=== PATIENT | female | born 1940 | race Caucasian/White ===

== ENCOUNTER → 2020-06-26 | Outpatient (CLI) | payer MEDICARE, OTHER ==
[~2020-06-26] MED LIST: ASPI-1238 PO; ATEN50TA PO; CALC-140 PO; CINN500C2 PO; CRAN450C PO; GLMP1T PO; IBUP-30 PO; LEVO100T7 PO; LOVA10TA PO; MULT-878 PO; POLY17PO6 PO; TRAM-42 PO
--- NOTE | 2020-06-26 17:20 | Diagnostic Imaging Report ---
EXAMINATION: Chest 2 views. HISTORY: Cough. Dyspnea. COMPARISON: Chest radiograph on 09/02/2015. FINDINGS: Lung volumes are normal. Hazy opacities are seen in the mid left lung. No pleural effusion or pneumothorax. The cardiac silhouette is unremarkable. No acute osseous abnormalities. IMPRESSION: 1. Hazy opacities in the mid left lung, which may represent infection. No pleural effusion. Dictated by: Dictated on workstation # [id number]
== END ==
LOC: RAD 16:47
PROVIDERS: ATTEND Internal Medicine
DX: R05 Cough (principal); R06.00 Dyspnea, unspecified; R91.8 Other nonspecific abnormal finding of lung field
CPT/HCPCS: 71046

== ENCOUNTER 2020-07-01 16:38 | Emergency (ER) | payer MEDICARE, OTHER ==
[~2020-07-01] VITALS: Ht 170.1 cm; Wt 90.7 kg
--- NOTE | 2020-07-01 17:01 | NUR ---
Attempted to call pt. Pt did not answer. Addendum: 07/01/20 at 1848 by [id number] Pt's COVID swab negative.
--- NOTE | 2020-07-01 17:37 | ED Respiratory ---
General Chief Complaint: Respiratory Problems Stated Complaint: DX W/ PNEUMONIA/SOB Nursing Triage Note: Pt ambulatory to rm 9. Pt reports being diagnosed with pneumonia last . Pt c/o SOB with exertion, weakness and fatigue today. Pt denies fever. Pt reports having negative COVID swab last week. Pt currently taking Levaquin. Source: patient Exam Limitations: no limitations History of Present Illness Date Seen by Provider: Jul 01, 2020 Time Seen by Provider: 17:36 Initial Comments To ER with about 2 weeks of cough and fatigue. She had a negative Covid swab last week, she had an x-ray done on and found out today she had a left middle lobe pneumonia. She was started on Levaquin yesterday. She's had one dose. No fevers. Timing/Duration: just prior to arrival Allergies and Home Medications Allergies Coded Allergies: cephalexin (Verified Adverse Reaction, Mild, NAUSEA, 09/03/15) Patient states the medication made her "vomit" Home Medications Aspirin 81 Mg Tablet.dr, 81-162 MG PO DAILY PRN for PAIN, (Reported) Atenolol 50 Mg Tablet, 50 MG PO DAILY Prescribed by: BRENDAN DUARTE on 09/04/15 0912 Calcium Carbonate/Vitamin D3 1 Each Tablet, 1 EACH PO TID, (Reported) Cranberry Fruit Concentrate 450 Mg Capsule, 450 MG PO DAILY, (Reported) Glimepiride 1 Mg Tab, 1 MG PO DAILY Prescribed by: BRENDAN DUARTE on 09/04/15 0912 Levothyroxine Sodium 100 Mcg Tablet, 100 MCG PO DAILY Prescribed by: JEET GALVAN on 10/22/15 152 Lovastatin 10 Mg Tablet, 10 MG PO DAILY Prescribed by: BRENDAN DUARTE on 09/05/15 0853 Multivitamins-Min/FA/Ginkgo 1 Each Tablet, 1 TAB PO DAILY, (Reported) Tramadol HCl 50 Mg Tablet, 50 MG PO BID PRN for PAIN Prescribed by: JEET GALVAN on 10/22/15 1523 Patient Home Medication List Home Medication List Reviewed: Yes Review of Systems Review of Systems Constitutional: see HPI; No chills, No fever; weakness EENTM: see HPI Respiratory: see HPI, cough (improving) Cardiovascular: no symptoms reported Genitourinary: no symptoms reported Musculoskeletal: no symptoms reported Skin: no symptoms reported Psychiatric/Neurological: No Symptoms Reported Past Pqytzjf-Yweapp-Nohmag Hx Patient Social History Alcohol Use: Denies Use Recreational Drug Use: No 2nd Hand Smoke Exposure: No Recent Foreign Travel: No Contact w/Someone Who Travel: No Recent Infectious Disease Expo: No Physical Abuse: No Sexual Abuse: No Mistreated: No Fear: No Seasonal Allergies Seasonal Allergies: No Past Medical History Surgeries: Yes (resection of basal cell carcinoma) Respiratory: Yes Pneumonia Currently Using CPAP: No Currently Using BIPAP: No 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) High Cholesterol, Hypertension Neurological: Yes Reproductive Disorders: No Sexually Transmitted Disease: No HIV/AIDS: No Gastrointestinal: No Musculoskeletal: Yes Arthritis Endocrine: Yes (THYROID NODULES) Hypothyroidsim, Diabetes, Non-Insulin dep Loss of Vision: Bilateral Hearing Impairment: Denies Cancer: Yes (basil cell carcinoma removal on forhead february 22, 2013) Skin Psychosocial: No Integumentary: No Blood Disorders: No Adverse Reaction/Blood Tranf: No Family Medical History Diabetes mellitus 19 MOTHER G8 BROTHER G8 BROTHER G8 BROTHER G8 BROTHER G8 BROTHER G8 BROTHER G8 BROTHER G8 BROTHER G8 BROTHER G8 SISTER G8 SISTER G8 SISTER G8 SISTER G8 SISTER G8 SISTER FH: lung cancer 19 FATHER Myocardial infarction 19 MOTHER ( with [place]) Respiratory disorder 19 MOTHER (pneumonia) Heart Disease, Cancer, Diabetes Physical Exam Vital Signs - First Documented 07/01/20 17:15 Temp 37.0 Pulse 85 Resp 20 B/P (MAP) 167/73 (104) Pulse Ox 98 O2 Delivery Room Air Capillary Refill : Less Than 3 Seconds Height: 5'9.00" Weight: 191lbs. 2.0oz. 86.181613ps; 31.00 BMI Method:Stated General Appearance: WD/WN, no apparent distress Eyes: Bilateral Eye Normal Inspection, Bilateral Eye PERRL, Bilateral Eye EOMI HEENT: PERRL/EOMI, normal ENT inspection Neck: non-tender, full range of motion Respiratory: normal breath sounds, no respiratory distress, no accessory muscle use Gastrointestinal: normal bowel sounds, non tender Extremities: normal range of motion, non-tender (-year-old) Neurologic/Psychiatric: alert, normal mood/affect, oriented x 3 Skin: normal color, warm/dry Progress/Results/Core Measures Suspected Sepsis Recent Fever Within 48 Hours: No Infection Criteria Present: None New/Unexplained Altered Menta: No Sepsis Screen: No Definite Risk SIRS Temperature: Pulse: 85 Respiratory Rate: 20 Laboratory Tests 07/01/20 17:15: White Blood Count 8.4 Blood Pressure 167 /73 Mean: 104 Laboratory Tests 07/01/20 17:15: Creatinine 0.88, Platelet Count 338, Total Bilirubin 0.3 Results/Orders Lab Results Laboratory Tests Test 07/01/20 17:15 07/01/20 17:50 07/01/20 18:04 07/01/20 19:19 Range/Units White Blood Count 8.4 4.3-11.0 10^3/uL Red Blood Count 4.27 3.80-5.11 10^6/uL Hemoglobin 12.9 11.5-16.0 g/dL Hematocrit 40 35-52 % Mean Corpuscular Volume 95 80-99 fL Mean Corpuscular Hemoglobin 30 25-34 pg Mean Corpuscular Hemoglobin Concent 32 32-36 g/dL Red Cell Distribution Width 12.2 10.0-14.5 % Platelet Count 338 130-400 10^3/uL Mean Platelet Volume 9.4 9.0-12.2 fL Immature Granulocyte % (Auto) 0 % Neutrophils (%) (Auto) 45 42-75 % Lymphocytes (%) (Auto) 43 12-44 % Monocytes (%) (Auto) 8 0-12 % Eosinophils (%) (Auto) 3 0-10 % Basophils (%) (Auto) 1 0-10 % Neutrophils # (Auto) 3.8 1.8-7.8 10^3/uL Lymphocytes # (Auto) 3.6 1.0-4.0 10^3/uL Monocytes # (Auto) 0.7 0.0-1.0 10^3/uL Eosinophils # (Auto) 0.3 0.0-0.3 10^3/uL Basophils # (Auto) 0.1 0.0-0.1 10^3/uL Immature Granulocyte # (Auto) 0.0 0.0-0.1 10^3/uL Sodium Level 138 135-145 MMOL/L Potassium Level 4.2 3.6-5.0 MMOL/L Chloride Level 104 98-107 MMOL/L Carbon Dioxide Level 24 21-32 MMOL/L Anion Gap 10 5-14 MMOL/L Blood Urea Nitrogen 19 H 7-18 MG/DL Creatinine 0.88 0.60-1.30 MG/DL Estimat Glomerular Filtration Rate > 60 BUN/Creatinine Ratio 22 Glucose Level 111 H 70-105 MG/DL Calcium Level 8.9 8.5-10.1 MG/DL Corrected Calcium 8.9 8.5-10.1 MG/DL Magnesium Level 1.9 1.6-2.4 MG/DL Total Bilirubin 0.3 0.1-1.0 MG/DL Aspartate Amino Transf (AST/SGOT) 69 H 5-34 U/L Alanine Aminotransferase (ALT/SGPT) 73 H 0-55 U/L Alkaline Phosphatase 81 40-136 U/L B-Type Natriuretic Peptide 65.2 <100.0 PG/ML Total Protein 7.2 6.4-8.2 GM/DL Albumin 4.0 3.2-4.5 GM/DL Urine Color YELLOW Urine Clarity CLEAR Urine pH 5.5 5-9 Urine Specific [place] 1.015 L 1.016-1.022 Urine Protein NEGATIVE NEGATIVE Urine Glucose (UA) NEGATIVE NEGATIVE Urine Ketones NEGATIVE NEGATIVE Urine Nitrite NEGATIVE NEGATIVE Urine Bilirubin NEGATIVE NEGATIVE Urine Urobilinogen 0.2 < = 1.0 MG/DL Urine Leukocyte Esterase 1+ H NEGATIVE Urine RBC (Auto) NEGATIVE NEGATIVE Urine RBC NONE /HPF Urine WBC 10-25 H /HPF Urine Squamous Epithelial Cells 10-25 H /HPF Urine Crystals NONE /LPF Urine Bacteria TRACE /HPF Urine Casts NONE /LPF Urine Mucus NEGATIVE /LPF Urine Culture Indicated YES Coronavirus 2019 (BRAD) Negative Negative Micro Results Microbiology 07/01/20 Urine Culture - Final, Complete Lactobacillus species See Comments My Orders Orders - FIDENCIO GLEASON JOB ANALYSIS MANAGER Cbc With Automated Diff (07/01/20 17:35) Comprehensive Metabolic Panel (07/01/20 17:35) Covid 19 Inhouse Test (07/01/20 17:35) BNP (07/01/20 17:35) Chest 1 View, Ap/Pa Only (07/01/20 17:35) Magnesium (07/01/20 17:35) Ua Culture If Indicated (07/01/20 17:35) Ns Iv 500 Ml (Sodium Chloride 0.9%) (07/01/20 17:48) Ns Iv 500 Ml (Sodium Chloride 0.9%) (07/01/20 18:00) Urine Culture (07/01/20 17:50) Coronavirus Sars-Cov-2 So 2019 (07/01/20 18:49) Medications Given in ED Vital Signs/I&O 07/01/20 07/01/20 17:15 19:29 Temp 37.0 37.0 Pulse 85 74 Resp 20 20 B/P (MAP) 167/73 (104) 150/72 (104) Pulse Ox 98 98 O2 Delivery Room Air Room Air Capillary Refill : Less Than 3 Seconds Blood Pressure Mean: 104 Diagnostic Imaging Diagonstic Imaging: Xray Plain Films/CT/US/NM/MRI: chest Comments NAME: PREET BARBER [facility] REC#: [id number] PT STATUS: REG ER : 1940 PHYSICIAN: FIDENCIO GLEASON APRN ADMIT DATE: 07/01/20/ER Signed Date of Exam:07/01/20 CHEST 1 VIEW, AP/PA ONLY INDICATION: Weakness and pneumonia. Time of exam: 6:59 PM Correlation is made with prior chest from 06/26/2020. Heart size is stable. The right-sided infiltrate has largely cleared. No new infiltrate is seen. There is no effusion or pneumothorax. IMPRESSION: Significant improved aeration to the right lung when compared with examination 5 days earlier. Dictated by: Dictated on workstation # [id number] Dict: 07/01/201899 Trans: 07/01/201910 [facility] [id number] Interpreted by: BLAS COLBERT MD Electronically signed by: BLAS COLBERT MD 07/01/201910 Departure Impression Primary Impression: UTI (urinary tract infection) Additional Impression: RESOLVING PNEUMONIA Disposition: HOME, SELF-CARE Condition: Stable Departure-Patient Inst. Decision time for Depature: 19:17 Referrals: BRENDAN DUARTE DO (PCP/Family) Primary Care Physician Patient Instructions: Urinary Tract Infection, Adult (DC) FIDENICO GLEASON APRN Jul 01, 2020 17:37
[2020-07-01 17:47] LABS: CHLORIDE 104 MMOL/L (98-107); POTASSIUM 4.2 MMOL/L (3.6-5.0); SODIUM 138 MMOL/L (135-145)
[2020-07-01 17:48] LABS: CALCIUM 8.9 MG/DL (8.5-10.1)
[2020-07-01] MEDS ORDERED: NS IV 500 ML 500 ML ONE (17:48)
[2020-07-01 17:49] LABS: GLUCOSE 111 MG/DL (70-105); TOTAL PROTEIN 7.2 GM/DL (6.4-8.2)
[2020-07-01 17:50] LABS: CARBON DIOXIDE 24 MMOL/L (21-32)
[2020-07-01 17:51] LABS: BILIRUBIN,TOTAL 0.3 MG/DL (0.1-1.0)
[2020-07-01 17:52] LABS: ALKALINE PHOSPHATASE 81 U/L (40-136)
[2020-07-01 17:53] LABS: CREATININE SERUM 0.88 MG/DL (0.60-1.30); GFR ESTIMATED > 60
[2020-07-01 17:54] LABS: BUN/CREATININE RATIO 22
[2020-07-01 17:55] LABS: MAGNESIUM 1.9 MG/DL (1.6-2.4)
[2020-07-01 17:56] LABS: ALANINE AMINOTRANSFERASE 73 U/L (0-55); BASOPHILS # (AUTO) 0.1 10^3/uL (0.0-0.1); BASOPHILS % (AUTO) 1 % (0-10); EOSINOPHILS # (AUTO) 0.3 10^3/uL (0.0-0.3); EOSINOPHILS % (AUTO) 3 % (0-10); HEMATOCRIT 40 % (35-52); HEMOGLOBIN 12.9 g/dL (11.5-16.0); LYMPHOCYTES # (AUTO) 3.6 10^3/uL (1.0-4.0); LYMPHOCYTES % (AUTO) 43 % (12-44); MEAN CORPUSCULAR HEMOGLOBIN 30 pg (25-34); MEAN CORPUSCULAR HGB CONC 32 g/dL (32-36); MEAN CORPUSCULAR VOLUME 95 fL (80-99); MEAN PLATELET VOLUME 9.4 fL (9.0-12.2); MONOCYTES # (AUTO) 0.7 10^3/uL (0.0-1.0); MONOCYTES % (AUTO) 8 % (0-12); NEUTROPHILS # (AUTO) 3.8 10^3/uL (1.8-7.8); NEUTROPHILS % (AUTO) 45 % (42-75); PLATELET COUNT 338 10^3/uL (130-400); WHITE BLOOD COUNT 8.4 10^3/uL (4.3-11.0)
[2020-07-01] MEDS ORDERED: NS IV 500 ML 500 ML IV SCH (18:00)
[2020-07-01 18:11] LABS: BILIRUBIN,URINE NEGATIVE (NEGATIVE); CLARITY,URINE CLEAR; COLOR,URINE YELLOW; GLUCOSE, URINE (UA) NEGATIVE (NEGATIVE); KETONES,URINE NEGATIVE (NEGATIVE); LEUKOCYTE ESTERASE ,URINE 1+ (NEGATIVE); NITRITE,URINE NEGATIVE (NEGATIVE); PH,URINE 5.5 (5-9); PROTEIN,URINE NEGATIVE (NEGATIVE)
[2020-07-01 18:27] LABS: BACTERIA,URINE TRACE /HPF
--- NOTE | 2020-07-01 19:08 | Diagnostic Imaging Report ---
INDICATION: Weakness and pneumonia. Time of exam: 6:59 PM Correlation is made with prior chest from 06/26/2020. Heart size is stable. The right-sided infiltrate has largely cleared. No new infiltrate is seen. There is no effusion or pneumothorax. IMPRESSION: Significant improved aeration to the right lung when compared with examination 5 days earlier. Dictated by: Dictated on workstation # [id number]
[2020-07-01 19:29] VITALS: BP 150/72
== END 2020-07-01 19:31 | disposition home or self-care (01) ==
LOC: EDUNIT# 16:38 → ER 16:39
DX: N39.0 Urinary tract infection, site not specified (principal); I10 Essential (primary) hypertension; E78.00 Pure hypercholesterolemia, unspecified; E11.9 Type 2 diabetes mellitus without complications; E03.9 Hypothyroidism, unspecified; Z83.3 Family history of diabetes mellitus; Z82.49 Family history of ischemic heart disease and other diseases of the circulatory system; Z80.1 Family history of malignant neoplasm of trachea, bronchus and lung; Z88.1 Allergy status to other antibiotic agents; Z85.828 Personal history of other malignant neoplasm of skin; Z20.828 Contact with and (suspected) exposure to other viral communicable diseases; Z79.890 Hormone replacement therapy; Z79.82 Long term (current) use of aspirin
CPT/HCPCS: 71045; 80053; 81000; 83735; 83880; 85025; 87077; 87088; 99284; U0002; 36415; 87635

== ENCOUNTER 2021-12-13 13:41 | Emergency (ER) | payer MEDICARE, OTHER ==
[~2021-12-13] VITALS: Ht 170 cm; Wt 88.6 kg
--- NOTE | 2021-12-13 14:16 | ED Lower Extremity ---
General Chief Complaint: Lower Extremity Stated Complaint: L KNEE PAIN History of Present Illness Date Seen by Provider: Dec 13, 2021 Time Seen by Provider: 16:00 Initial Comments 80-year-old female presents for left knee pain. She has had the pain for many years and was told of a history of arthritis. Today, she was walking by her bed when her left knee popped and she felt a sudden onset of pain and was able to fall onto her bed. She denies any injuries. She has been using a walker at all times and is having difficulty putting weight on her left leg. She has had no previous surgeries to her left knee. Onset: this morning Severity: moderate Pain/Injury Location: left knee Allergies and Home Medications Allergies Coded Allergies: cephalexin (Verified Adverse Reaction, Mild, NAUSEA, 09/03/15) Patient states the medication made her "vomit" Patient Home Medication List Home Medication List Reviewed: Yes Aspirin (Aspirin EC) 81 Mg Tablet.dr, 81-162 MG PO DAILY PRN for PAIN, (Reported) Entered as Reported by: VERONICA FUENTES on 09/02/15 1030 Atenolol (Atenolol) 50 Mg Tablet, 50 MG PO DAILY Prescribed by: BRENDAN DUARTE on 09/04/15 0912 Calcium Carbonate/Vitamin D3 (Calcium + Vitamin D Tablet) 1 Each Tablet, 1 EACH PO TID, (Reported) Entered as Reported by: AFSHIN HOLT on 10/22/15 0849 Cranberry Fruit Concentrate (Cranberry) 450 Mg Capsule, 450 MG PO DAILY, (Reported) Entered as Reported by: VERONICA FUENTES on 09/02/15 1030 Glimepiride (Amaryl) 1 Mg Tab, 1 MG PO DAILY Prescribed by: BRENDAN DUARTE on 09/04/15 0912 Levothyroxine Sodium (Levothyroxine Sodium) 100 Mcg Tablet, 100 MCG PO DAILY Prescribed by: JEET GALVAN on 10/22/15 1522 Lovastatin (Lovastatin) 10 Mg Tablet, 10 MG PO DAILY Prescribed by: BRENDAN DUARTE on 09/05/15 0853 Multivitamins-Min/FA/Ginkgo (One Daily For Women 50+ Adv Tb) 1 Each Tablet, 1 TAB PO DAILY, (Reported) Entered as Reported by: VERONICA FUENTES on 09/02/15 1030 Tramadol HCl (Ultram) 50 Mg Tablet, 50 MG PO BID PRN for PAIN Prescribed by: JEET GALVAN on 10/22/15 1523 Tramadol HCl (Tramadol HCl) 50 Mg Tablet, 50 MG PO Q6H PRN for PAIN Prescribed by: JAIME PEARCE on 12/13/21 1514 Review of Systems Constitutional: no symptoms reported Musculoskeletal: see HPI, joint pain (Left knee pain) All Other Systems Reviewed Negative Unless Noted: Yes Past Pjgvjfg-Htuzyy-Xorrhr Hx Seasonal Allergies Seasonal Allergies: No Past Medical History Surgeries: Yes (resection of basal cell carcinoma) Respiratory: Yes Pneumonia Currently Using CPAP: No Currently Using BIPAP: No 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) High Cholesterol, Hypertension Neurological: Yes Reproductive Disorders: No Sexually Transmitted Disease: No HIV/AIDS: No Gastrointestinal: No Musculoskeletal: Yes Arthritis Endocrine: Yes (THYROID NODULES) Hypothyroidsim, Diabetes, Non-Insulin dep Loss of Vision: Bilateral Hearing Impairment: Denies Cancer: Yes (basil cell carcinoma removal on [place] february 22, 2013) Skin Psychosocial: No Integumentary: No Blood Disorders: No Adverse Reaction/Blood Tranf: No Family Medical History Reviewed Nursing Family Hx Diabetes mellitus 19 MOTHER G8 BROTHER G8 BROTHER G8 BROTHER G8 BROTHER G8 BROTHER G8 BROTHER G8 BROTHER G8 BROTHER G8 BROTHER G8 SISTER G8 SISTER G8 SISTER G8 SISTER G8 SISTER G8 SISTER FH: lung cancer 19 FATHER Myocardial infarction 19 MOTHER ( with [place]) Respiratory disorder 19 MOTHER (pneumonia) Heart Disease, Cancer, Diabetes Physical Exam Vital Signs Vital Signs - First Documented 12/13/21 13:57 Temp 36.5 Pulse 82 Resp 18 B/P (MAP) 196/96 (129) Pulse Ox 96 O2 Delivery Room Air Capillary Refill : Height, Weight, BMI Height: 5'9.00" Weight: 191lbs. 2.0oz. 86.046327oy; 31.00 BMI Method:Stated General Appearance: WD/WN, no apparent distress Cardiovascular: normal peripheral pulses, regular rate, rhythm Respiratory: chest non-tender, lungs clear, normal breath sounds Knees: left knee bone tenderness, left knee joint effusion, left knee pain, left knee soft tissue tenderness, left knee swelling, left knee other (Limitation of motion, popliteal cyst. No instability.) Neurologic/Psychiatric: no motor/sensory deficits, alert, normal mood/affect, oriented x 3 Skin: normal color, warm/dry Progress/Results/Core Measures Results/Orders My Orders Orders - JAIME PEARCE Knee, Left, 3 Views (12/13/21 14:16) Tramadol Tablet (Ultram Tablet) (12/13/21 14:37) Vital Signs/I&O 12/13/21 12/13/21 13:57 15:29 Temp 36.5 Pulse 82 81 Resp 18 18 B/P (MAP) 196/96 (129) 146/71 Pulse Ox 96 98 O2 Delivery Room Air Room Air Diagnostic Imaging Diagonstic Imaging: Xray Plain Films/CT/US/NM/MRI: knee Comments NAME: PREET BARBER [facility] REC#: [id number] PT STATUS: REG ER : 1940 PHYSICIAN: JAIME PEARCE ADMIT DATE: 12/13/21/ER Draft Date of Exam:12/13/21 KNEE, LEFT, 3 VIEWS INDICATION: Posterior left knee pain. [place] a pop yesterday. TECHNIQUE: 3 views of the left knee 2:23 PM CORRELATION STUDY: None FINDINGS: Moderate joint space narrowing both medially and laterally. Mild marginal osteophyte formation medially. No calcified intraarticular loose bodies. Prominent spur like formation about the superior pole of the patella. Anterior patella is incompletely imaged. Small suprapatellar joint effusion. No evidence to suggest lipohemarthrosis. Vascular calcification is noted within the soft tissues. IMPRESSION: 1. Negative for acute bony abnormality of the knee. Moderately advanced multicompartment degenerative changes of the left knee. Small joint effusion. Dictated on workstation # [id number] Dict: 12/13/21 1426 Trans: 12/13/21 1430 [facility] [id number] Interpreted by: JM YEBOAH DO Electronically signed by: Reviewed: Reviewed by Me Departure Impression Primary Impression: Left knee pain Qualified Codes: M25.562 - Pain in left knee Additional Impression: Degenerative joint disease of left knee Qualified Codes: M17.12 - Unilateral primary osteoarthritis, left knee Disposition: 01 HOME, SELF-CARE Condition: Stable Departure-Patient Inst. Decision time for Depature: 14:45 Referrals: ELISSA LOBATO MD, WILLIAM J DO (PCP/Family) Primary Care Physician CHITO TORRES MD Patient Instructions: Knee Sprain (DC) Add. Discharge Instructions: Ice to left knee for 20 minutes every 2 hours while awake. Use a walker at all times, weightbearing as tolerated to the left knee. You can continue to take the Tylenol arthritis for pain and add Ultram if you have worse pain. Follow-up with your family doctor for referral to orthopedics. Return to the emergency department for new, urgent healthcare needs. All discharge instructions reviewed with patient and/or family. Voiced understanding. Scripts Tramadol HCl (Tramadol HCl) 50 Mg Tablet 50 MG PO Q6H PRN for PAIN, #20 TAB 0 Refills Prov: JAIME PEARCE 12/13/21 JAIME PEARCE Dec 13, 2021 14:16
--- NOTE | 2021-12-13 14:30 | Diagnostic Imaging Report ---
INDICATION: Posterior left knee pain. [place] a pop yesterday. TECHNIQUE: 3 views of the left knee 2:23 PM CORRELATION STUDY: None FINDINGS: Moderate joint space narrowing both medially and laterally. Mild marginal osteophyte formation medially. No calcified intraarticular loose bodies. Prominent spur like formation about the superior pole of the patella. Anterior patella is incompletely imaged. Small suprapatellar joint effusion. No evidence to suggest lipohemarthrosis. Vascular calcification is noted within the soft tissues. IMPRESSION: 1. Negative for acute bony abnormality of the knee. Moderately advanced multicompartment degenerative changes of the left knee. Small joint effusion. Dictated by: Dictated on workstation # [id number]
[2021-12-13] MEDS ORDERED: TRM50T PO (15:13)
[2021-12-13 15:29] VITALS: BP 146/71
== END 2021-12-13 15:29 | disposition home or self-care (01) ==
LOC: EDUNIT# 13:41 → ER 13:42
DX: M17.12 Unilateral primary osteoarthritis, left knee (principal)
CPT/HCPCS: 73562; 99283